=== PATIENT | male | born 1985 | race Two or more races ===

== ENCOUNTER → 2017-09-05 | Outpatient (REF) | payer OTHER ==
[2017-09-05 11:38] LABS: WHITE BLOOD COUNT 6.9 10^3/uL (4.0-10.0)
[2017-09-05 11:39] LABS: BASO # 0.1 10^3/uL (0.0-0.2); BASO % 0.9 % (0.0-1.0); EOS # 0.3 10^3/uL (0.0-0.50); EOS % 4.2 % (0.0-3.0); IMMATURE GRANULOCYTE % 0.1 % (0-0); LYMPH # 2.9 10^3/uL (1.5-4.5); LYMPH % 42.9 % (24.0-44.0); MEAN CORPUSCULAR HEMOGLOBIN 30.1 pg (27.0-33.0); MEAN CORPUSCULAR HGB CONC 34.6 g/dl (32.0-36.5); MEAN CORPUSCULAR VOLUME 87.1 fl (80.0-96.0); MONO # 0.6 10^3/uL (0.0-0.8); MONO % 8.3 % (0.0-5.0); NEUTROPHILS % 43.6 % (36.0-66.0); PLATELET COUNT, AUTOMATED 229 10^3/uL (150-450); RED CELL DISTRIBUTION WIDTH 12.2 % (11.5-14.5)
[2017-09-05 11:51] LABS: ALBUMIN 4.1 GM/DL (3.2-5.2); ALBUMIN/GLOBULIN RATIO 1.21 (1.00-1.93); ALKALINE PHOSPHATASE 105 U/L (45-117); ALT/SGPT 90 U/L (12-78); ANION GAP 10 MEQ/L (8-16); AST/SGOT 27 U/L (7-37); BILIRUBIN,TOTAL 0.4 MG/DL (0.2-1.0); BLOOD UREA NITROGEN 15 MG/DL (7-18); CALCIUM LEVEL 9.1 MG/DL (8.5-10.1); CARBON DIOXIDE LEVEL 26 MEQ/L (21-32); CHLORIDE LEVEL 105 MEQ/L (98-107); CHOLESTEROL LEVEL 210 MG/DL (<200); CREATININE FOR GFR 0.87 MG/DL (0.70-1.30); GLOMERULAR FILTRATION RATE > 60.0 (>60); GLUCOSE, FASTING 103 MG/DL (70-105); SODIUM LEVEL 141 MEQ/L (136-145); TOTAL PROTEIN 7.5 GM/DL (6.4-8.2); TRIGLYCERIDES LEVEL 704 MG/DL (<150)
== END ==
LOC: M SFHCCLAY 08:28
PROVIDERS: ATTEND Family Medicine
DX: Z00.00 Encounter for general adult medical examination without abnormal findings (principal); Z80.2 Family history of malignant neoplasm of other respiratory and intrathoracic organs; Z13.0 Encounter for screening for diseases of the blood and blood-forming organs and certain disorders involving the immune mechanism; Z13.220 Encounter for screening for lipoid disorders

== ENCOUNTER 2018-05-13 20:30 | Emergency (ER) | payer OTHER, SELFPAY ==
[2018-05-13] MEDS: CLINDAMYCIN 150 MG CAP PO (21:40)
[2018-05-13] MEDS: NORCO, ANEXSIA 5/325MG TABLET (HYDROcodone/ACETAMINOPHEN) PO (21:40)
[2018-05-13] MEDS ORDERED: KETOROLAC 30 MG/ML VIAL (J1885) As Ordered (21:41)
[2018-05-13] MEDS: KETOROLAC 60 MG/2 ML VIAL (J1885) IM (21:53)
[2018-05-13] MEDS: NORCO 5/325MG TABLET (BULK FOR ED) PO (21:53)
== END 2018-05-13 22:01 | disposition home or self-care (01) ==
LOC: M ED 20:30
DX: K02.9 Dental caries, unspecified (principal); Z88.0 Allergy status to penicillin; Z79.899 Other long term (current) drug therapy
CPT/HCPCS: J1885

== ENCOUNTER → 2020-03-31 | Outpatient (REF) | payer OTHER ==
[~2020-03-31] MED LIST: CLIN150C14 PO; FLUC200T2 PO; IBUP-1114 PO; IBUP40TA PO; NORC1TAB7 PO
== END ==
LOC: M LAB REF 16:25
PROVIDERS: ATTEND Physician Assistant
DX: R31.9 Hematuria, unspecified (principal)

== ENCOUNTER 2022-07-04 19:37 | Emergency (ER) | payer OTHER ==
[~2022-07-04] VITALS: Ht 172.7 cm; Wt 109.1 kg
[2022-07-04 19:37] VITALS: BP 140/92
[~2022-07-04 19:37] MED LIST changes: -CLIN150C14 PO; +CLIN150C17 PO; -FLUC200T2 PO; +FLUC200T4 PO; +IBUP1TAB5 PO; -IBUP40TA PO
== END 2022-07-05 00:19 | disposition left against medical advice (07) ==
LOC: M ED 19:37
DX: Z53.21 Procedure and treatment not carried out due to patient leaving prior to being seen by health care provider (principal)